=== PATIENT | male | born 1985 | race African-American/Black ===

== ENCOUNTER 2021-08-12 05:34 | Emergency (ER) | payer SELFPAY ==
[2021-08-12 05:38] VITALS: BP 132/69; PULSE 97; RESP 18; TEMP 36.8; O2SAT 98
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
[2021-08-12 05:54] LABS: Abs Immature Grans 0.06 10^3/uL (0.0-0.06); Absolute Basophil Count 0.04 10^3/uL (0.0-0.2); Absolute Lymphocyte Count 0.68 10^3/uL (1.2-3.4); Absolute Monocyte Count 0.69 10^3/uL (0.1-0.8); Absolute Neutrophil Count 10.25 10^3/uL (1.2-6.7); Basophils % 0.3; HCT 45.1 % (40.0-50.0); HGB 14.2 g/dL (13.5-17.5); Immature Grans % 0.5; Lymphocytes % 5.8; MCHC 31.5 % (32.0-36.0); MCV 86 fL (80-95); MPV 9.1 fL (8.0-11.0); Monocytes % 5.9; Neutrophils % 87.5; Platelet Count 266 10^3/uL (130-400); RBC 5.25 10^6/uL (4.36-5.78); RDW 12.7 % (11.8-14.1); RDW-SD 39.7 fL; WBC 11.71 10^3/uL (4.4-10.8)
[2021-08-12 06:13] LABS: ALT 30 U/L (16-63); AST 21 U/L (15-37); Albumin 3.9 g/dL (3.4-5.0); Alkaline Phosphatase 65 U/L (46-116); Anion Gap 8.5 mmol/L (3-11); BUN 11 mg/dL (7-18); Bilirubin, Total 0.4 mg/dL (0.2-1.0); CO2 23.5 mmol/L (21.0-32.0); CREATININE 1.1 mg/dL (0.70-1.30); Calcium 8.9 mg/dL (8.5-10.1); Chloride 106 mmol/L (98-107); ETHANOL BLOOD < 3.0 mg/dL (<10); Glucose 144 mg/dL (74-106); Potassium 4.6 mmol/L (3.5-5.1); Sodium 138 mmol/L (136-145); Total Protein 7.3 g/dL (6.4-8.2)
[2021-08-12] MEDS: ACETAMINOPHEN 1,000 MG/100 ML BTL 400 MG IVPB (06:14)
[2021-08-12] MEDS: Lidocaine/Epinephri/Tetracaine Topical Gel 3 ML TP (06:14)
[2021-08-12] MEDS: Normal Saline 1,000 ML 1000 ML IV (06:14)
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
== END 2021-08-12 08:00 | disposition home or self-care (01) ==
LOC: ER 07:53
PROVIDERS: Emergency Provider Student in an Organized Health Care Education/Training Program
DX: S06.0X0A Concussion without loss of consciousness, initial encounter (principal); S01.511A Laceration without foreign body of lip, initial encounter; Y08.89XA Assault by other specified means, initial encounter
CPT/HCPCS: 80053; 96361; 96374; 99284; 70450; 70486; 72125; 80320; 85025; J0131

== ENCOUNTER 2021-08-12 13:32 | Emergency (ER) | payer SELFPAY ==
[2021-08-12 13:36] VITALS: BP 132/63; PULSE 99; RESP 18; TEMP 36.5; O2SAT 98
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
== END 2021-08-12 14:18 | disposition home or self-care (01) ==
PROVIDERS: Emergency Provider Emergency Medicine
DX: R56.9 Unspecified convulsions (principal)
CPT/HCPCS: 80053; 99283; 80320; 83735; 84443; 85025